=== PATIENT | female | born 1985 | race African-American/Black ===

== ENCOUNTER 2017-04-20 14:16 | Emergency (ER) | payer SELFPAY ==
[2017-04-20 14:19] VITALS: BP 118/78; PULSE 77; RESP 16; TEMP 98.5; O2SAT 99
[2017-04-20] MEDS ORDERED: IBUPROFEN 600 MG TAB PO ONE (15:15)
[2017-04-20] MEDS ORDERED: ONDANSETRON ODT 4 MG TAB PO ONE (15:15)
--- NOTE | 2017-04-20 15:34 | PD ---
HPI Chief Complaint: GI Complaint Time Seen by Provider: 14:46 Travel History International Travel<30 days: No Contact w/Intl Traveler<30days: No Traveled to known affect area: No History of Present Illness HPI 31-year-old female arrives to the ER by EMS due to vomiting and pelvic cramping for a couple hours. [place]temp outside in high 80s today) and then went to a restaurant and ate oysters ending Caesar salad. Shortly thereafter she began vomiting. A total of 8 episodes of vomiting reported, non-bloody. No diarrhea. LMP started today and patient states pain is worse than typical for her menstruation. She believes symptoms may be due to sun exposure, having recently relocated here from [place]. [facility] Past Medical History Medical History: Denies Significant Hx ?: Not Past Surgical History Gynecologic Surgery: Yes (LEFT BREAST BIOPSY) Social History Alcohol Use: Yes (OCC) Tobacco Use: Yes (OCC) Allergies-Medications (Allergen,Severity, Reaction): Coded Allergies: No Known Allergies (Unverified , 04/20/17) Reported Meds & Prescriptions Reported Meds & Active Scripts Active Zofran Odt (Ondansetron Odt) 4 Mg Tab 4 Mg SL Q8HR PRN Ibuprofen 600 Mg Tab 600 Mg PO Q8HR PRN 5 Days Review of Systems Except as stated in HPI: all other systems reviewed are Neg Physical Exam Narrative GENERAL: 31 yo F, WNWD, pleasant, resting comfortably at time of assessment SKIN: Warm and dry. HEAD: Atraumatic. Normocephalic. EYES: Pupils equal and round. No scleral icterus. No injection or drainage. ENT: No nasal bleeding or discharge. Mucous membranes pink and moist. NECK: Trachea midline. No JVD. CARDIOVASCULAR: Regular rate and rhythm. RESPIRATORY: No accessory muscle use. Clear to auscultation. Breath sounds equal bilaterally. GASTROINTESTINAL: Soft. No focal tenderness. No rebound. MUSCULOSKELETAL: Extremities without clubbing, cyanosis, or edema. No obvious deformities. NEUROLOGICAL: Awake and alert. No obvious cranial nerve deficits. Motor grossly within normal limits. Five out of 5 muscle strength in the arms and legs. Normal speech. PSYCHIATRIC: Appropriate mood and affect; insight and judgment normal. Data Data Last Documented VS Vital Signs Date Time Temp Pulse Resp B/P Pulse Ox O2 Delivery O2 Flow Rate FiO2 04/20/17 14:19 98.5 77 16 118/78 99 VS reviewed Orders Ondansetron Odt (Zofran Odt) (04/20/17 15:15) Oral Rehydration (04/20/17 15:04) Ed Urine Pregnancytest Poc (04/20/17 15:04) Ibuprofen (Motrin) (04/20/17 15:15) MDM Medical Decision Making Medical Screen Exam Complete: Yes Emergency Medical Condition: Yes Differential Diagnosis IUP, food poisoning, menstrual cramping Narrative Course U is negative ODT Zofran given. Oral rehydration tolerated well. Pt ok for discharge home. Diagnosis Primary Impression: Pelvic cramping Additional Impression: Vomiting Qualified Code: R11.2 - Non-intractable vomiting with nausea, unspecified vomiting type Referrals: Primary Care Physician 2 days Additional Instructions: You have a choice when it comes to health care, and we are glad that you chose [facility]. Hopefully, we have met your expectations on today's visit. You are welcome to return to [facility] at any time, as we are committed to meeting the health care needs of our community. Med/Other Pt SpecificInfo: Prescription(s) given Scripts Ondansetron Odt (Zofran Odt)4 Mg Tab4 Mg SL Q8HR PRN (Nausea/Vomiting) #10 TAB Ref 0 Prov:Lorne Bauer MD 04/20/17 Ibuprofen 600 Mg [id number] Mg PO Q8HR PRN (PAIN) 5 Days Ref 0 Prov:Lorne Bauer MD 04/20/17 Disposition: 01 DISCHARGE HOME Condition: Stable Lorne Bauer MD Apr 20, 2017 15:33 Lorne Bauer MD Apr 20, 2017 15:33
[2017-04-20] MEDS ORDERED: IBUP-232 PO (16:00)
[2017-04-20] MEDS ORDERED: ZOFR4TAB3 SL (16:03)
== END 2017-04-20 16:26 | disposition home or self-care (01) ==
LOC: PHED 14:16
DX: R10.2 Pelvic and perineal pain (principal); R11.2 Nausea with vomiting, unspecified
CPT/HCPCS: 84703; 99283